=== PATIENT | female | born 1980 | race African-American/Black ===

== ENCOUNTER 2025-08-02 15:16 | Emergency (ER) | payer MEDICAID ==
[~2025-08-02] VITALS: Ht 165.1 cm; Wt 73.0 kg
[2025-08-02 15:37] VITALS: O2SAT 100
[2025-08-02] MEDS ORDERED: LIDO700A30 TP (17:13)
[2025-08-02] MEDS ORDERED: METH-653 MT (17:13)
[2025-08-02] MEDS ORDERED: IBUP-1455 MT (17:13)
[2025-08-02] MEDS: METHOCARBAMOL 500MG TABLET PO ONE (17:16)
[2025-08-02] MEDS: KETOROLAC 30MG/ML VIAL IM ONE (17:16)
[2025-08-02] MEDS: LIDOCAINE 5% PATCH TOP SCH (17:17)
[2025-08-02 17:24] VITALS: BP 165/86; PULSE 65; RESP 15; TEMP 36.8; O2SAT 100
== END 2025-08-02 17:25 | disposition home or self-care (01) ==
LOC: ER 15:16
DX: M54.40 Lumbago with sciatica, unspecified side (principal); Z79.899 Other long term (current) drug therapy; Z98.890 Other specified postprocedural states
CPT/HCPCS: 99283; 96372; J1885